=== PATIENT | male | born 1950 | race Caucasian/White ===

== ENCOUNTER 2021-06-23 15:42 | Emergency (ER) | payer MEDICARE ==
[~2021-06-23] VITALS: Ht 175.3 cm; Wt 92.0 kg
[2021-06-23] MEDS ORDERED: ACETAMINOPHEN 325MG TABLET PO ONE (17:15)
[2021-06-23 20:20] VITALS: BP 132/74
== END 2021-06-23 20:20 | disposition home or self-care (01) ==
LOC: ER 15:42
DX: S01.01XA Laceration without foreign body of scalp, initial encounter (principal); S09.90XA Unspecified injury of head, initial encounter; E78.00 Pure hypercholesterolemia, unspecified; W01.0XXA Fall on same level from slipping, tripping and stumbling without subsequent striking against object, initial encounter; Y93.89 Activity, other specified; Y92.512 Supermarket, store or market as the place of occurrence of the external cause; Y99.8 Other external cause status
CPT/HCPCS: 12001; 99284